=== PATIENT | male | born 1945 | race Caucasian/White ===

== ENCOUNTER 2019-08-05 02:03 | Emergency (ER) | payer MEDICARE, OTHER ==
[~2019-08-05] VITALS: Ht 170.2 cm; Wt 81.0 kg
[2019-08-05] MEDS ORDERED: NS 1,000 ML IV ONE (02:30)
[2019-08-05 02:37] LABS: BASO % 0.2 % (0.0-1.0); EOS # 0.2 10^3/uL (0.0-0.5); EOS % 1.5 % (0.0-3.0); HEMATOCRIT 40.6 % (42.0-52.0); HEMOGLOBIN 13.8 g/dl (13.5-17.5); LYMPH # 1.7 10^3/uL (1.5-5.0); LYMPH % 16.3 % (24.0-44.0); MEAN CORPUSCULAR HEMOGLOBIN 32.2 pg (27.0-33.0); MEAN CORPUSCULAR VOLUME 94.9 fl (80.0-96.0); MONO # 1.1 10^3/uL (0.0-0.8); MONO % 10.6 % (0.0-5.0); NEUTROPHILS # 7.4 10^3/uL (1.5-8.5); NEUTROPHILS % 71.1 % (36.0-66.0); RED BLOOD COUNT 4.28 10^6/uL (4.30-6.10); WHITE BLOOD COUNT 10.4 10^3/uL (4.0-10.0)
[2019-08-05] MEDS ORDERED: ISOVUE-370 76% 100ML VIAL (Q9967) As Ordered ONE (02:37)
[2019-08-05] MEDS ORDERED: fentaNYL 100 MCG/2 ML INJECTION (J3010) IV ONE (02:45)
[2019-08-05 02:57] LABS: PLATELET COUNT, AUTOMATED 125 10^3/uL (150-450)
[2019-08-05] MEDS ORDERED: LORA-622 PO (02:57)
[2019-08-05] MEDS ORDERED: KETO0.02 OP (02:57)
[2019-08-05] MEDS ORDERED: SYMB16INH INH (02:57)
[2019-08-05] MEDS ORDERED: GLIP10TA PO (02:57)
[2019-08-05] MEDS ORDERED: CALC500C16 PO (02:57)
[2019-08-05] MEDS ORDERED: META28.32 PO (02:57)
[2019-08-05] MEDS ORDERED: NITR0.4S14 SL (02:57)
[2019-08-05] MEDS ORDERED: ALLO10TA PO (02:57)
[2019-08-05] MEDS ORDERED: POTA20TA6 PO (02:57)
[2019-08-05] MEDS ORDERED: ARTISOL2 OP (02:57)
[2019-08-05] MEDS ORDERED: FLOM0.4C39 PO (02:57)
[2019-08-05] MEDS ORDERED: METF500T13 PO (02:57)
[2019-08-05] MEDS ORDERED: ASPI81TA85 PO (02:57)
[2019-08-05] MEDS ORDERED: FLUO0.0112 TOP (02:57)
[2019-08-05] MEDS ORDERED: CALC0.009 TOP (02:57)
[2019-08-05] MEDS ORDERED: MONT10TA4 PO (02:57)
[2019-08-05] MEDS ORDERED: TROS20TA3 PO (02:57)
[2019-08-05] MEDS ORDERED: FURO20TA2 PO (02:57)
[2019-08-05] MEDS ORDERED: METO1TAB7 PO (02:57)
[2019-08-05] MEDS ORDERED: OMEP-218 PO (02:57)
[2019-08-05] MEDS ORDERED: ROSU20TA5 PO (02:57)
[2019-08-05 03:01] LABS: BLOOD UREA NITROGEN 12 MG/DL (7-18); CALCIUM LEVEL 7.9 MG/DL (8.8-10.2); CARBON DIOXIDE LEVEL 21 MEQ/L (21-32); CHLORIDE LEVEL 104 MEQ/L (98-107); CPK CREATINE PHOSPHOKINASE 139 U/L (39-308); GLOMERULAR FILTRATION RATE > 60.0 (>42); GLUCOSE, FASTING 212 MG/DL (70-100); SODIUM LEVEL 136 MEQ/L (136-145)
[2019-08-05 03:02] LABS: CK-MB VALUE MASS 4.1 NG/ML (<3.6); MB/CK RELATIVE INDEX 2.95 (< OR =4); TROPONIN I < 0.02 NG/ML (< 0.10)
--- NOTE | 2019-08-05 03:16 | REP ---
Clinical: Chest pain radiating to the back. Comparison: 07/31/2013. Findings: Chronic elevation to the right hemidiaphragm again noted. Cardiac silhouette is normal. Pacemaker again appreciated. Mild chronic basilar fibroatelectatic changes as suggested. No focal consolidation. No obvious effusion. No pneumothorax. Skeletal structures intact. Impression: Chronic stable changes. No obvious acute cardiopulmonary process. Electronically Signed by Real Lama MD 08/05/2019 03:08 A
[2019-08-05 03:18] LABS: ALT/SGPT 14 U/L (12-78); BILIRUBIN,DIRECT 0.2 MG/DL (0.0-0.2); BILIRUBIN,TOTAL 0.7 MG/DL (0.2-1.0); LIPASE 47 U/L (73-393); TOTAL PROTEIN 5.7 GM/DL (6.4-8.2)
--- NOTE | 2019-08-05 03:46 | REPVR ---
PROCEDURE INFORMATION: Exam: CT Angiography Chest With Contrast Exam date and time: 08/05/2019 2:33 AM Age: 74 years old Clinical indication: Chest pain; Type not specified; Additional info: Chest pain/abd pain, radiating through to back TECHNIQUE: Imaging protocol: Computed tomographic angiography of the chest with intravenous contrast. 3D rendering: MIP and/or 3D reconstructed images were created by the technologist. Radiation optimization: All CT scans at this facility use at least one of these dose optimization techniques: automated exposure control; mA and/or kV adjustment per patient size (includes targeted exams where dose is matched to clinical indication); or iterative reconstruction. Contrast material: ISO; Contrast volume: 100 ml; Contrast route: AC; COMPARISON: CR PORTABLE CHEST X-RAY 08/05/2019 2:26 AM FINDINGS: Pulmonary arteries: Normal. No pulmonary emboli. Aorta: Aorta is unremarkable. No aneurysm or dissection. Lungs: Mild bibasilar atelectasis. Lungs are otherwise clear. No infiltrates or masses. Pleural space: Unremarkable. No pneumothorax. No pleural effusion. Heart: Coronary artery atherosclerotic disease is present. Lymph nodes: Unremarkable. No enlarged lymph nodes. Bones/joints: Advanced degenerative changes in the spine, more severe in the cervical spine. Soft tissues: Unremarkable. IMPRESSION: No acute findings. Electronically signed by: Caleb Tucker On 08/05/2019 03:45:33 AM
--- NOTE | 2019-08-05 03:54 | REPVR ---
PROCEDURE INFORMATION: Exam: CT Angiography Abdomen and Pelvis With Contrast Exam date and time: 08/05/2019 2:33 AM Age: 74 years old Clinical indication: Abdominal pain; Localized; Other: Back; Additional info: Chest pain/abd pain, radiating through to back TECHNIQUE: Imaging protocol: Computed tomographic angiography of the abdomen and pelvis with intravenous contrast material. 3D rendering: MIP and/or 3D reconstructed images were created by the technologist. Radiation optimization: All CT scans at this facility use at least one of these dose optimization techniques: automated exposure control; mA and/or kV adjustment per patient size (includes targeted exams where dose is matched to clinical indication); or iterative reconstruction. Contrast material: ISO; Contrast volume: 100 ml; Contrast route: AC; COMPARISON: CT ABD PELVIS W/O CONTRAST 05/30/2016 3:00 PM FINDINGS: Aorta: No aortic aneurysm or dissection. No signs of aortitis or other inflammatory process. Celiac trunk and mesenteric arteries: No occlusion or significant stenosis. Renal arteries: No occlusion or significant stenosis. Right iliac arteries: No occlusion or significant stenosis. Left iliac arteries: No occlusion or significant stenosis. Liver: No mass. Gallbladder and bile ducts: Mildly distended. No calcified stones. No ductal dilation. Pancreas: Unremarkable. No mass. No ductal dilation. Spleen: Unremarkable. No splenomegaly. Adrenals: Unremarkable. No mass. Kidneys and ureters: Parenchymal calcification in the mid left kidney. Kidneys are otherwise unremarkable. No hydronephrosis. Stomach and bowel: Colonic diverticulosis without evidence of diverticulitis. The small bowel is unremarkable. Appendix: No evidence of appendicitis. Intraperitoneal space: Unremarkable. No free air. No significant fluid collection. Lymph nodes: Unremarkable. No enlarged lymph nodes. Bladder: Unremarkable. No mass. Reproductive: Unremarkable as visualized. Bones/joints: Intrathecal calcification in the lumbosacral spinal canal is unchanged. There are advanced degenerative changes in the spine and pelvis. 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 Soft tissues: Unremarkable. Other findings: The exam is degraded by patient motion artifact. IMPRESSION: 1. Motion limited exam. 2. No acute findings. No aneurysm or dissection. 3. Colonic diverticulosis. 4. Advanced degenerative changes in the spine. 5. Mildly distended gallbladder. No right upper quadrant inflammatory changes or calcified stones are seen. Consider right upper quadrant ultrasound followup if there is clinical concern for cholecystitis. Electronically signed by: Caleb Tucker On 08/05/2019 03:54:17 AM
[2019-08-05] MEDS ORDERED: LORazepam 2 MG/ML VIAL (J2060) IV STA (04:20)
--- NOTE | 2019-08-05 05:13 | REPVR ---
PROCEDURE INFORMATION: Exam: US Abdomen Limited, Right Upper Quadrant Exam date and time: 08/05/2019 4:59 AM Age: 74 years old Clinical indication: Abdominal pain; Acute; Additional info: Ruq abd pain TECHNIQUE: Imaging protocol: Real-time ultrasound of the abdomen with image documentation. Examination was focused on the right upper quadrant. COMPARISON: CT ANGIO ABD/PEL 08/05/2019 2:43 AM FINDINGS: Liver: Normal. No masses. Gallbladder: Gallbladder contains some intraluminal sludge. Gallbladder wall is thickened and edematous measuring 6 mm. Trace pericholecystic fluid. Common bile duct: No biliary duct dilation. Pancreas: Visualized pancreas is unremarkable. Right kidney: Normal. No mass. No hydronephrosis. IMPRESSION: 1. Gallbladder wall thickening with intraluminal sludge suggesting a calculus cholecystitis. 2. No biliary duct dilation. Electronically signed by: Caleb Tucker On 08/05/2019 05:13:07 AM
[2019-08-05 09:18] LABS: CK-MB VALUE MASS 4.8 NG/ML (<3.6); CPK CREATINE PHOSPHOKINASE 159 U/L (39-308); MB/CK RELATIVE INDEX 3.02 (< OR =4); TROPONIN I < 0.02 NG/ML (< 0.10)
[2019-08-05 09:49] VITALS: BP 130/66
--- NOTE | 2019-08-05 10:47 | ED PDOC ---
Post-Departure Follow-Up esvin watson faxed formal report of gbus for fu Mars De La O MD Aug 05, 2019 10:47
--- NOTE | 2019-08-05 10:48 | ED PDOC ---
Post-Departure Follow-Up cta abd/p for fu also sent to pcp Mars Coffman MD Aug 05, 2019 10:48
--- NOTE | 2019-08-05 15:01 | ECGEPIP ---
[facility] - ED Test Date: 2019-08-05 Pat Name: NOLBERTO SALGADO Department: Room: - Gender: Male Environmental Compliance Manager: SAY : 1945 Requested By: LON Yang Order Number: [id number] Reading MD: Lizette Vega Measurements Intervals [place] Rate: 71 P: 142 VA: 207 QRS: -42 QRSD: 111 T: 72 QT: 397 QTc: 432 Interpretive Statements ELECTRONIC ATRIAL PACEMAKER MARKED LEFT AXIS DEVIATION NSTTW abnormalities LOW QRS VOLTAGE IN PRECORDIAL LEADS ANTEROSEPTAL MYOCARDIAL INFARCTION, OF INDETERMINATE AGE 1105/30/16 NOT PACED Electronically Signed on 08-05-2019 15:01:27 EST by Lizette Vega
--- NOTE | 2019-08-05 15:03 | ECGEPIP ---
[facility] - ED Test Date: 2019-08-05 Pat Name: NOLBERTO SALGADO Department: Room: - Gender: Male Brokerage Branch Manager: manish : 1945 Requested By: LON Yang Order Number: [id number] Reading MD: Lizette Vega Measurements Intervals [place] Rate: 103 P: 37 DC: 185 QRS: -55 QRSD: 106 T: 28 QT: 333 QTc: 436 Interpretive Statements SINUS TACHYCARDIA WITH OCCASIONAL VENTRICULAR PREMATURE COMPLEXES LEFT ANTERIOR FASCICULAR BLOCK ANTEROSEPTAL MYOCARDIAL INFARCTION, OF INDETERMINATE AGE 2:16 PACED Electronically Signed on 08-05-2019 15:03:14 EST by Lizette Vega
== END 2019-08-05 10:00 | disposition home or self-care (01) ==
LOC: M ED 02:03 → EDBD 02:03 → M ED 10:00
DX: R07.89 Other chest pain (principal); K87 Disorders of gallbladder, biliary tract and pancreas in diseases classified elsewhere; I25.10 Atherosclerotic heart disease of native coronary artery without angina pectoris; Z79.899 Other long term (current) drug therapy; Z79.84 Long term (current) use of oral hypoglycemic drugs; Z79.82 Long term (current) use of aspirin
CPT/HCPCS: 71045; 71275; 74174; 76705; 80047; 80048; 80076; 82550; 82553; 83690; 84484; 85025; 93005; 93041; 94760; 96361; 96374; 96375; 99285; J2060; J3010; Q9967

== ENCOUNTER 2021-05-16 16:31 | Inpatient (IN) | payer MEDICARE ==
[~2021-05-16] VITALS: Ht 160 cm; Wt 75.5 kg
[2021-05-16] MEDS: SYMBICORT 160/4.5MCG INHALER 6GM INH SCH (00:35)
[~2021-05-16 16:31] MED LIST: ALLO10TA PO; ARTISOL2 OP; ASPI81TA86 PO; CALC0.009 TOP; CALC500C16 PO; FLOM0.4C39 PO; FLUO0.0112 TOP; FURO20TA2 PO; GLIP10TA PO; KETO0.02 OP; LORA-622 PO; META28.32 PO; METF500T13 PO; METO1TAB7 PO; MONT10TA97 PO; NITR0.4S14 SL; OMEP-173 PO; POTA-151 PO; ROSU20TA5 PO; SYMB16INH INH; TROS20TA3 PO
[2021-05-16 17:04] LABS: BASO % 0.3 % (0.0-1.0); EOS # 0.2 10^3/uL (0.0-0.5); EOS % 2.9 % (0.0-3.0); HEMATOCRIT 34.2 % (42.0-52.0); HEMOGLOBIN 11.5 g/dl (13.5-17.5); LYMPH # 1.5 10^3/uL (1.5-5.0); LYMPH % 22.7 % (24.0-44.0); MEAN CORPUSCULAR HEMOGLOBIN 32.2 pg (27.0-33.0); MEAN CORPUSCULAR HGB CONC 33.6 g/dl (32.0-36.5); MEAN CORPUSCULAR VOLUME 95.8 fl (80.0-96.0); MONO # 0.6 10^3/uL (0.0-0.8); MONO % 8.8 % (2.0-8.0); NEUTROPHILS # 4.4 10^3/uL (1.5-8.5); NEUTROPHILS % 64.7 % (36.0-66.0); PLATELET COUNT, AUTOMATED 152 10^3/uL (150-450); RED BLOOD COUNT 3.57 10^6/uL (4.30-6.10); WHITE BLOOD COUNT 6.8 10^3/uL (4.0-10.0)
[2021-05-16 17:22] LABS: CK-MB VALUE MASS 3.8 NG/ML (<3.6); CPK CREATINE PHOSPHOKINASE 93 U/L (39-308); MB/CK RELATIVE INDEX 4.09 (< OR =4); TROPONIN I < 0.02 NG/ML (< 0.10)
[2021-05-16 17:30] LABS: BLOOD UREA NITROGEN 16 MG/DL (7-18); CALCIUM LEVEL 8.6 MG/DL (8.8-10.2); CARBON DIOXIDE LEVEL 28 MEQ/L (21-32); CHLORIDE LEVEL 98 MEQ/L (98-107); CREATININE FOR GFR 1.22 MG/DL (0.70-1.30); GLOMERULAR FILTRATION RATE > 60.0 (>42); GLUCOSE, FASTING 106 MG/DL (70-100); POTASSIUM SERUM 4.1 MEQ/L (3.5-5.1); SODIUM LEVEL 133 MEQ/L (136-145)
[2021-05-16] MEDS ORDERED: ISOVUE-370 76% 100ML VIAL As Ordered ONE (18:12)
[2021-05-16 18:15] LABS: ALBUMIN 3.1 GM/DL (3.2-5.2); ALT/SGPT 39 U/L (12-78); BILIRUBIN,DIRECT 0.2 MG/DL (0.0-0.2); BILIRUBIN,TOTAL 0.3 MG/DL (0.2-1.0); LIPASE 51 U/L (73-393); TOTAL PROTEIN 5.7 GM/DL (6.4-8.2)
[2021-05-16] MEDS ORDERED: NS 500 ML IV ONE (19:55)
[2021-05-16 20:18] LABS: RSV AMPLIFICATION NEGATIVE (NEGATIVE)
[2021-05-16] MEDS ORDERED: HumaLOG INSULIN (NovoLOG) PER UNIT SC SCH (21:00)
[2021-05-16] MEDS ORDERED: ROSUVASTATIN 10 MG TAB (CRESTOR) PO SCH (21:00)
[2021-05-16] MEDS ORDERED: LORA-674 PO (21:29)
[2021-05-16] MEDS ORDERED: ROSU20TA5 PO (21:29)
[2021-05-16] MEDS ORDERED: ALLO100T PO (21:29)
[2021-05-16] MEDS ORDERED: POLYOPD OU (21:29)
[2021-05-16] MEDS ORDERED: GLIP5TAB8 PO (21:29)
[2021-05-16] MEDS ORDERED: TROS20TA3 PO (21:30)
[2021-05-16] MEDS ORDERED: BUSP5TA PO ×2 (21:35)
[2021-05-16] MEDS ORDERED: ASPI-161 PO (21:35)
[2021-05-16] MEDS ORDERED: ZOLO100T PO (21:35)
[2021-05-16] MEDS ORDERED: HOME MED LIST COMPLETE! XX SCH (21:35)
[2021-05-16] MEDS ORDERED: MONT10TA97 PO (21:35)
[2021-05-16] MEDS ORDERED: METF-838 PO ×2 (21:35)
[2021-05-16] MEDS ORDERED: METO1TAB32 PO (21:35)
[2021-05-16] MEDS ORDERED: SPIR-10 PO (21:35)
[2021-05-16] MEDS ORDERED: NITR4TASL SL (21:35)
[2021-05-16] MEDS ORDERED: MAGN400T2 PO (21:35)
[2021-05-16] MEDS ORDERED: AMIO200T49 PO (21:35)
[2021-05-16] MEDS ORDERED: ELIQ5TAB PO (21:35)
[2021-05-16] MEDS ORDERED: DEXTROSE 50% 50 ML SYRINGE IV PRN (21:50)
[2021-05-16] MEDS ORDERED: GLUCOSE 4GM CHEW TABLET PO PRN (21:50)
[2021-05-16] MEDS ORDERED: GLUCAGON INJ 1MG VIAL SC PRN (21:50)
[2021-05-16] MEDS ORDERED: busPIRone 5 MG TAB PO PRN (21:55)
[2021-05-16] MEDS ORDERED: NITROGLYCERIN 0.4 MG SUBL TABLET SL PRN (21:55)
[2021-05-16] MEDS ORDERED: POLYVINYL ALCOHOL OPHTH SOLN 15 ML(LIQUITEARS) OU PRN (21:55)
[2021-05-17 00:10] VITALS: BP 125/70
[2021-05-17 00:43] LABS: HEMATOCRIT 34.2 % (42.0-52.0); HEMOGLOBIN 11.9 g/dl (13.5-17.5); MEAN CORPUSCULAR HEMOGLOBIN 33.3 pg (27.0-33.0); MEAN CORPUSCULAR HGB CONC 34.8 g/dl (32.0-36.5); MEAN CORPUSCULAR VOLUME 95.8 fl (80.0-96.0); PLATELET COUNT, AUTOMATED 138 10^3/uL (150-450); RED BLOOD COUNT 3.57 10^6/uL (4.30-6.10); WHITE BLOOD COUNT 6.6 10^3/uL (4.0-10.0)
[2021-05-17] MEDS: busPIRone 5 MG TAB PO SCH ×2 (02:17→08:39)
[2021-05-17] MEDS: APIXABAN 5 MG TAB (ELIQUIS) PO SCH ×2 (02:17→08:38)
[2021-05-17] MEDS: SPIRONOLACTONE 25 MG TAB PO SCH ×2 (02:17→08:38)
[2021-05-17] MEDS: MAGNESIUM OXIDE 400MG TAB (MAG-OX) PO SCH ×2 (02:18→08:40)
[2021-05-17 06:00] VITALS: BP 133/62
[2021-05-17] MEDS: HumaLOG INSULIN (NovoLOG) PER UNIT SC SCH ×3 (07:30→17:30)
[2021-05-17] MEDS: SYMBICORT 160/4.5MCG INHALER 6GM INH SCH (07:32)
[2021-05-17 08:23] LABS: BASO % 0.3 % (0.0-1.0); EOS # 0.2 10^3/uL (0.0-0.5); EOS % 2.9 % (0.0-3.0); HEMATOCRIT 37.9 % (42.0-52.0); HEMOGLOBIN 13.1 g/dl (13.5-17.5); LYMPH # 1.4 10^3/uL (1.5-5.0); LYMPH % 23.7 % (24.0-44.0); MEAN CORPUSCULAR HEMOGLOBIN 33.1 pg (27.0-33.0); MEAN CORPUSCULAR HGB CONC 34.6 g/dl (32.0-36.5); MEAN CORPUSCULAR VOLUME 95.7 fl (80.0-96.0); MONO # 0.6 10^3/uL (0.0-0.8); MONO % 9.5 % (2.0-8.0); NEUTROPHILS # 3.7 10^3/uL (1.5-8.5); NEUTROPHILS % 63.1 % (36.0-66.0); PLATELET COUNT, AUTOMATED 159 10^3/uL (150-450); RED BLOOD COUNT 3.96 10^6/uL (4.30-6.10); WHITE BLOOD COUNT 5.8 10^3/uL (4.0-10.0)
[2021-05-17 08:34] LABS: INR 1.43; PARTIAL THROMBOPLASTIN TIME 38.9 SECONDS (25.9-37.0); PROTHROMBIN TIME 17.8 SECONDS (12.7-14.5)
[2021-05-17 08:39] VITALS: BP 122/67
[2021-05-17 08:48] LABS: BLOOD UREA NITROGEN 13 MG/DL (7-18); CALCIUM LEVEL 8.5 MG/DL (8.8-10.2); CARBON DIOXIDE LEVEL 26 MEQ/L (21-32); CHLORIDE LEVEL 105 MEQ/L (98-107); CHOLESTEROL LEVEL 98 MG/DL (<200); CREATININE FOR GFR 0.94 MG/DL (0.70-1.30); GLOMERULAR FILTRATION RATE > 60.0 (>42); GLUCOSE, FASTING 116 MG/DL (70-100); HDL CHOLESTEROL 41 MG/DL (>40); LDL CHOLESTEROL 41 MG/DL (<100); MAGNESIUM LEVEL 2.1 MG/DL (1.8-2.4); NON-HDL-C 57 MG/DL; POTASSIUM SERUM 3.8 MEQ/L (3.5-5.1); SODIUM LEVEL 137 MEQ/L (136-145); TRIGLYCERIDES LEVEL 79 MG/DL (<150)
[2021-05-17] MEDS ORDERED: ASPIRIN 81MG ENTERIC TABLET PO SCH (09:00)
[2021-05-17] MEDS ORDERED: FUROSEMIDE 20 MG TAB PO SCH (09:00)
[2021-05-17] MEDS ORDERED: METOPROLOL SUCC *XL* 25MG TAB (TopROL *XL*) PO SCH (09:00)
[2021-05-17] MEDS ORDERED: allopurinoL 100 MG TAB PO SCH (09:00)
[2021-05-17] MEDS ORDERED: AMIODARONE 200 MG TAB (PACERONE) PO SCH (09:00)
[2021-05-17] MEDS ORDERED: MONTELUKAST 10 MG TAB PO SCH (09:00)
[2021-05-17] MEDS ORDERED: POTASSIUM CHLORIDE 10MEQ SR TABLET PO SCH (09:00)
[2021-05-17] MEDS ORDERED: SERTRALINE 100 MG TAB PO SCH (09:00)
[2021-05-17] MEDS ORDERED: TAMSULOSIN 0.4 MG CAP PO SCH (09:00)
[2021-05-17 11:14] LABS: HEPATITIS B CORE ANTIBODY IGM NEGATIVE (NEGATIVE); HEPATITIS B SURFACE ANTIGEN NEGATIVE (NEGATIVE); HEPATITIS C VIRUS ABY INDEX 0.1 INDEX (<0.8)
[2021-05-17 14:00] VITALS: BP 121/67
[2021-07-04] MEDS ORDERED: PANT20TA6 PO (11:22)
[2021-07-04] MEDS ORDERED: SUCR1SS PO (16:17)
== END 2021-05-17 17:59 | disposition home or self-care (01) | DRG 311 ==
LOC: M ED 16:31 → EDBD 16:31 → M ED INP 21:08 → ENRESERV 22:19 → M MSPAV 05-17 00:11
PROVIDERS: ADMIT Internal Medicine; ATTEND Internal Medicine
DX: I20.0 Unstable angina (principal); E87.1 Hypo-osmolality and hyponatremia; I49.5 Sick sinus syndrome; Z95.0 Presence of cardiac pacemaker; Z86.74 Personal history of sudden cardiac arrest; I10 Essential (primary) hypertension; E11.9 Type 2 diabetes mellitus without complications; M10.9 Gout, unspecified; Z86.718 Personal history of other venous thrombosis and embolism; K21.9 Gastro-esophageal reflux disease without esophagitis; Z90.49 Acquired absence of other specified parts of digestive tract; R55 Syncope and collapse; D64.9 Anemia, unspecified; R74.01 Elevation of levels of liver transaminase levels; J44.9 Chronic obstructive pulmonary disease, unspecified; N40.0 Benign prostatic hyperplasia without lower urinary tract symptoms; E66.9 Obesity, unspecified; R26.89 Other abnormalities of gait and mobility; Z20.822 Contact with and (suspected) exposure to COVID-19; Z79.01 Long term (current) use of anticoagulants; Z79.84 Long term (current) use of oral hypoglycemic drugs; Z79.899 Other long term (current) drug therapy; K76.0 Fatty (change of) liver, not elsewhere classified

== ENCOUNTER 2021-10-03 21:32 | Emergency (ER) | payer MEDICARE, OTHER ==
[~2021-10-03] VITALS: Ht 160 cm; Wt 70.9 kg
[~2021-10-03 21:32] MED LIST changes: +ALLO100T PO; +AMIO200T49 PO; +ASPI-161 PO; +BUSP5TA PO; +ELIQ5TAB PO; +GLIP5TAB8 PO; +LORA-674 PO; +MAGN400T2 PO; +METF-838 PO; +METO1TAB32 PO; +NITR4TASL SL; +PANT20TA6 PO; +POLYOPD OU; +SPIR-10 PO; +SUCR1SS PO; +ZOLO100T PO
[2021-10-03] MEDS ORDERED: NS 1,000 ML IV ONE (21:40)
[2021-10-03 22:12] LABS: BASO % 0.4 % (0.0-1.0); EOS # 0.2 10^3/uL (0.0-0.5); EOS % 3.2 % (0.0-3.0); HEMATOCRIT 34.3 % (42.0-52.0); LYMPH # 1.9 10^3/uL (1.5-5.0); LYMPH % 25.8 % (24.0-44.0); MEAN CORPUSCULAR HEMOGLOBIN 33.5 pg (27.0-33.0); MEAN CORPUSCULAR VOLUME 95.8 fl (80.0-96.0); MONO # 0.8 10^3/uL (0.0-0.8); MONO % 10.8 % (2.0-8.0); NEUTROPHILS # 4.3 10^3/uL (1.5-8.5); NEUTROPHILS % 59.4 % (36.0-66.0); PLATELET COUNT, AUTOMATED 164 10^3/uL (150-450); RED BLOOD COUNT 3.58 10^6/uL (4.30-6.10); WHITE BLOOD COUNT 7.2 10^3/uL (4.0-10.0)
[2021-10-03 22:22] LABS: INR 1.4; PROTHROMBIN TIME 17.6 SECONDS (12.7-14.5)
[2021-10-03 22:43] LABS: ALBUMIN 3.3 GM/DL (3.2-5.2); BILIRUBIN,DIRECT 0.2 MG/DL (0.0-0.2); BILIRUBIN,TOTAL 0.5 MG/DL (0.2-1.0); CALCIUM LEVEL 8.4 MG/DL (8.8-10.2); CREATININE FOR GFR 1.48 MG/DL (0.70-1.30); GLOMERULAR FILTRATION RATE 48.9 (>42); POTASSIUM SERUM 4.3 MEQ/L (3.5-5.1); TOTAL PROTEIN 6.1 GM/DL (6.4-8.2)
[2021-10-03 22:45] LABS: MB/CK RELATIVE INDEX 3.67 (< OR =4)
[2021-10-03 23:24] LABS: RSV AMPLIFICATION NEGATIVE (NEGATIVE)
[2021-10-04 01:17] VITALS: BP 133/88
== END 2021-10-04 01:58 | disposition home or self-care (01) ==
LOC: M ED 21:32
DX: R07.89 Other chest pain (principal); E86.0 Dehydration; R94.31 Abnormal electrocardiogram [ECG] [EKG]; I25.10 Atherosclerotic heart disease of native coronary artery without angina pectoris; I11.0 Hypertensive heart disease with heart failure; I50.9 Heart failure, unspecified; E78.5 Hyperlipidemia, unspecified; Z86.718 Personal history of other venous thrombosis and embolism; K21.9 Gastro-esophageal reflux disease without esophagitis; F32.A Depression, unspecified; Z95.0 Presence of cardiac pacemaker; Z79.01 Long term (current) use of anticoagulants; Z79.899 Other long term (current) drug therapy; Z79.84 Long term (current) use of oral hypoglycemic drugs

== ENCOUNTER → 2021-10-26 | Outpatient (CLI) | payer OTHER | LOC: M RAD 14:49 | PROVIDERS: ATTEND Internal Medicine | DX: M54.59 Other low back pain (principal) ==

== ENCOUNTER → 2021-12-08 | Outpatient (REF) | payer OTHER ==
[2021-12-08 12:12] LABS: HEMATOCRIT 37.1 % (42.0-52.0); HEMOGLOBIN 13.1 g/dl (13.5-17.5); MEAN CORPUSCULAR HEMOGLOBIN 33.9 pg (27.0-33.0); MEAN CORPUSCULAR HGB CONC 35.3 g/dl (32.0-36.5); MEAN CORPUSCULAR VOLUME 96.1 fl (80.0-96.0); PLATELET COUNT, AUTOMATED 183 10^3/uL (150-450); RED BLOOD COUNT 3.86 10^6/uL (4.30-6.10); WHITE BLOOD COUNT 5.6 10^3/uL (4.0-10.0)
[2021-12-08 12:20] LABS: AMORPHOUS SEDIMENT LARGE (NEGATIVE); APPEARANCE, URINE CLOUDY (CLEAR); BACTERIA, URINE AUTO NEGATIVE (NEGATIVE); BILIRUBIN, URINE AUTO NEGATIVE (NEGATIVE); BLOOD, URINE BLOOD NEGATIVE (NEGATIVE); COLOR, URINE YELLOW (YELLOW); GLUCOSE, URINE (UA) AUTO NEGATIVE (NEGATIVE); KETONE, URINE AUTO NEGATIVE (NEGATIVE); LEUKOCYTE ESTERASE, URINE AUTO 1+ (NEGATIVE); MUCUS, URINE SMALL (NEGATIVE); NITRITE, URINE AUTO NEGATIVE (NEGATIVE); PROTEIN, URINE AUTO NEGATIVE (NEGATIVE); RBC, URINE AUTO 1 /HPF (0-3); SQUAMOUS EPITHELIAL CELL UR AU 0 /HPF (0-6); WBC, URINE AUTO 12 /HPF (0-3)
[2021-12-08 12:25] LABS: INR 1.36; PROTHROMBIN TIME 17.2 SECONDS (12.7-14.5)
[2021-12-08 14:20] LABS: ALBUMIN 3.4 GM/DL (3.2-5.2); ALT/SGPT 99 U/L (12-78); BILIRUBIN,TOTAL 0.8 MG/DL (0.2-1.0); BLOOD UREA NITROGEN 18 MG/DL (7-18); CALCIUM LEVEL 8.5 MG/DL (8.8-10.2); CARBON DIOXIDE LEVEL 25 MEQ/L (21-32); CHLORIDE LEVEL 104 MEQ/L (98-107); CREATININE FOR GFR 1.05 MG/DL (0.70-1.30); GLOMERULAR FILTRATION RATE > 60.0 (>42); GLUCOSE, FASTING 147 MG/DL (70-100); POTASSIUM SERUM 4.4 MEQ/L (3.5-5.1); SODIUM LEVEL 135 MEQ/L (136-145)
== END ==
LOC: M LAB 09:00 → EDSTATUS 03-01 09:22
PROVIDERS: ATTEND Internal Medicine
DX: E11.69 Type 2 diabetes mellitus with other specified complication (principal)

== ENCOUNTER → 2022-04-06 | Outpatient (CLI) | payer OTHER | LOC: M RAD 12:01 | PROVIDERS: ATTEND Internal Medicine | DX: I71.40 Abdominal aortic aneurysm, without rupture, unspecified (principal) ==

== ENCOUNTER → 2022-04-11 | Outpatient (CLI) | payer OTHER | LOC: M LABSMTC 10:01 | PROVIDERS: ATTEND Anesthesiology | DX: Z01.818 Encounter for other preprocedural examination (principal); Z11.52 Encounter for screening for COVID-19 ==

== ENCOUNTER 2022-04-16 07:57 | Day surgery (SDC) | payer OTHER ==
[~2022-04-16] VITALS: Ht 160 cm; Wt 71.1 kg
[~2022-04-16 07:57] MED LIST changes: +CEFUROXIME 1MG/0.1ML INTRACAMERAL INJ As Ordered ONE; +DUOVISC (0.50ML VISCOAT/0.85ML PROVISC) OPHTH KIT As Ordered ONE; +LIDOCAINE 1% SDV 5ML VIAL As Ordered ONE; +MIDAZOLAM INJ 2MG/2ML VIAL (J2250 PER 1MG) As Ordered ONE; +POVIDONE-IODINE 5% OPHTH PREP SOL 30ML As Ordered ONE
[2022-04-16] MEDS ORDERED: VISCOAT 40-30MG/ML 0.5ML SYRINGE As Ordered ONE (10:06)
[2022-04-16 10:17] VITALS: BP 107/68
[2022-04-16] MEDS ORDERED: LIDOCAINE 3.5 % 1ML OPHTH TOPICAL GEL OU ONE (10:30)
[2022-04-16] MEDS ORDERED: BSS IRRIG/VANCO(10MG)/TOBRA(5MG)/EPINEPH(1:1000-0.5CC)500ML BAG-ORONLY IR ONE (10:30)
[2022-04-16] MEDS ORDERED: TROPICAMIDE 1% OPHTH SOLN 2ML OS SCH (10:30)
[2022-04-16] MEDS ORDERED: PHENYLEPHRINE HCL 10 % OPHTH. SOL 5ML OS PRN (10:30)
[2022-04-16] MEDS ORDERED: PHENYLEPHRINE 2.5% OPHTH SOL 2ML OS SCH (10:30)
[2022-04-16] MEDS ORDERED: CYCLOPENTOLATE 1% OPHTH SOLN 2 ML BTL OS SCH (10:30)
[2022-04-16] MEDS ORDERED: OFLOXACIN 0.3 % (OCUFLOX) OPTH SOL 5ML OS ONE (10:30)
== END 2022-04-16 10:44 | disposition home or self-care (01) ==
LOC: M SDC 07:57
PROVIDERS: ATTEND Ophthalmology
DX: H25.12 Age-related nuclear cataract, left eye (principal); E11.9 Type 2 diabetes mellitus without complications; Z88.8 Allergy status to other drugs, medicaments and biological substances
CPT/HCPCS: 66984; J0697; J2250; V2632

== ENCOUNTER → 2022-06-14 | Outpatient (CLI) | payer OTHER ==
[~2022-06-14] MED LIST changes: -CEFUROXIME 1MG/0.1ML INTRACAMERAL INJ As Ordered ONE; -DUOVISC (0.50ML VISCOAT/0.85ML PROVISC) OPHTH KIT As Ordered ONE; -LIDOCAINE 1% SDV 5ML VIAL As Ordered ONE; -MIDAZOLAM INJ 2MG/2ML VIAL (J2250 PER 1MG) As Ordered ONE; -POVIDONE-IODINE 5% OPHTH PREP SOL 30ML As Ordered ONE
== END ==
LOC: M RAD 09:09
PROVIDERS: ATTEND Nurse Practitioner Family
DX: R79.89 Other specified abnormal findings of blood chemistry (principal)

== ENCOUNTER → 2022-10-04 | Outpatient (CLI) | payer MEDICARE, OTHER ==
[~2022-10-04] MED LIST changes: +ARTIDRO4 OU; -KETO0.02 OP; +KETO5DRO33 OP; -POLYOPD OU
== END ==
LOC: M WHC 09:29
DX: K74.00 Hepatic fibrosis, unspecified (principal)

== ENCOUNTER → 2023-04-04 | Outpatient (CLI) | payer OTHER, MEDICARE ==
[~2023-04-04] MED LIST changes: +LORA-1041 PO; -LORA-674 PO; -ROSU20TA5 PO; +ROSU20TA61 PO
== END ==
LOC: M RAD 08:47
DX: K74.60 Unspecified cirrhosis of liver (principal)